=== PATIENT | male | born 2000 | race Caucasian/White ===

== ENCOUNTER 2019-05-01 02:08 | Emergency (ER) | payer BC ==
[~2019-05-01] VITALS: Ht 182.9 cm; Wt 97.7 kg
[2019-05-01 02:14] VITALS: BP 169/98; TEMP 98.7
[2019-05-01] MEDS ORDERED: COSENTYX P150 MG/1 M SQ (02:18)
[2019-05-01 03:17] VITALS: PULSE 88
== END 2019-05-01 03:17 | disposition home or self-care (01) ==
LOC: COL.ER 02:08
DX: S01.511A Laceration without foreign body of lip, initial encounter (principal); Z23 Encounter for immunization; W50.0XXA Accidental hit or strike by another person, initial encounter; Y92.410 Unspecified street and highway as the place of occurrence of the external cause